=== PATIENT | male | born 1990 | race Caucasian/White ===

== ENCOUNTER 2021-09-26 13:23 | Emergency (ER) | payer MEDICAID, SELFPAY ==
[~2021-09-26] VITALS: Ht 180.3 cm; Wt 81.6 kg
--- NOTE | 2021-09-26 13:45 | NUR ---
RECEIVED PT IN BED 8 WITH CC OF PALPITATIONS FOR ABOUT OF MONTH, CURRENTLY RESOLVED, ROUTINELY IN THE AM. PT DENIES CHEST PRESSURE AT THIS TIME. PT IS STABLE, NAD, VSS, AWAITING ADDITIONAL ED MD ASSESSMENT AND DISPOSITION WITH PLAN OF CARE.
[2021-09-26 14:13] LABS: BASOPHILS % (AUTO) 0.9 % (0.0-2.0); EOSINOPHILS # (AUTO) 0.1 K/uL (0.0-0.4); EOSINOPHILS % (AUTO) 1.7 % (0.0-4.0); HEMATOCRIT 45.8 % (36-54); HEMOGLOBIN 15.3 g/dL (14.0-18.0); LYMPHOCYTES # (AUTO) 1.5 K/uL (1.0-5.5); MEAN CORPUSCULAR HEMOGLOBIN 31 pg (27-31); MEAN CORPUSCULAR HGB CONC 33 % (32-36); MEAN CORPUSCULAR VOLUME 94 fL (79.0-98.0); MONOCYTES # (AUTO) 0.4 K/uL (0.0-1.0); MONOCYTES % (AUTO) 7.6 % (1.7-9.3); NEUTROPHILS # (AUTO) 3.1 K/uL (1.8-7.7); NEUTROPHILS % (AUTO) 60.8 % (40.0-70.0); PLATELET COUNT (AUTO) 215 K/uL (130-430); RED BLOOD CELL COUNT(AUTO) 4.87 MIL/uL (4.2-6.2)
--- NOTE | 2021-09-26 14:16 | NUR ---
ER at bedside examining patient.
[2021-09-26 14:22] LABS: ANION GAP 9 (5-15); CALCIUM 8.7 mg/dL (8.4-11.0); CHLORIDE 103 mmol/L (98-107); CREATININE 1.16 mg/dL (0.55-1.30); GLUCOSE 91 mg/dL (70-99); POTASSIUM 4.2 mmol/L (3.5-5.1); SODIUM SERUM 141 mmol/L (136-145); UREA NITROGEN, BLOOD 11 mg/dL (8-21)
[2021-09-26 14:26] LABS: GFR AFRICAN AMERICAN 95 mL/min (>90)
[2021-09-26 14:59] LABS: FREE T4 (FREE THYROXINE) 1.3 ng/dl (0.8-1.5); THYROID STIMULATING HORMONE 2.91 uIu/mL (0.36-3.74)
--- NOTE | 2021-09-26 15:14 | NUR ---
Covid swab collected at 1510 and sent to lab.
[2021-09-26 15:48] VITALS: BP_SYST 115
--- NOTE | 2021-09-26 15:49 | NUR ---
PT DISCHARGED HOME STABLE, NAD, VSS, PROVIDED LAB AND EKG PRINT OUT. PT GIVEN DARRELL AND VERBALIZED UNDERSTANDING.
== END 2021-09-26 15:49 | disposition home or self-care (01) ==
LOC: SED 13:23
DX: R00.2 Palpitations (principal); R07.89 Other chest pain; Z20.822 Contact with and (suspected) exposure to COVID-19
CPT/HCPCS: 36415; 80048; 84439; 84443; 84479; 84484; 85025; 93005; 99284